=== PATIENT | male | born 1940 | race Asian ===

== ENCOUNTER → 2016-08-28 | Outpatient (CLI) | payer MEDICARE, BC ==
[~2016-08-28] VITALS: Ht 160 cm; Wt 71.0 kg
[~2016-08-28] MED LIST: AMLO1CAP PO; ASPI-556 PO; ATOR80TA PO; BENZ-26 PO; BETA60OI3 TP; CALC560C TP; CALC600T2 PO; CARV25 PO; CETI-260 PO; CLOB60CR4 TP; EZET10 PO; FENO160 PO; FLUT16H NASAL; INSLAN SQ; INSU100I15 SQ; LOSA100T29 PO; PANT40TA25 PO; TAMS0.4C32 PO; TICA90TA PO; USTE45DI SQ; XALA2.5OS; [UNRECOGNIZED DRUG - CODE] TP
[2016-08-28 13:12] VITALS: BP 105/70
== END | disposition home or self-care (01) ==
LOC: SRCNTR 12:10
PROVIDERS: ATTEND Internal Medicine Critical Care Medicine
DX: I10 Essential (primary) hypertension (principal); E11.9 Type 2 diabetes mellitus without complications; J30.9 Allergic rhinitis, unspecified; E78.2 Mixed hyperlipidemia; J06.9 Acute upper respiratory infection, unspecified; K21.9 Gastro-esophageal reflux disease without esophagitis; N40.0 Benign prostatic hyperplasia without lower urinary tract symptoms; I50.9 Heart failure, unspecified; J44.9 Chronic obstructive pulmonary disease, unspecified; L40.9 Psoriasis, unspecified
CPT/HCPCS: G0463

== ENCOUNTER → 2016-08-28 | Outpatient (CLI) | payer MEDICARE, BC | END | disposition home or self-care (01) | LOC: RADPV 13:59 | PROVIDERS: ATTEND Internal Medicine Critical Care Medicine | DX: J44.9 Chronic obstructive pulmonary disease, unspecified (principal); I50.9 Heart failure, unspecified; I70.0 Atherosclerosis of aorta | CPT/HCPCS: 71020 ==

== ENCOUNTER → 2016-10-26 | Outpatient (CLI) | payer MEDICARE, BC ==
[~2016-10-26] VITALS: Ht 157.5 cm; Wt 70.0 kg
[~2016-10-26] MED LIST changes: -CALC600T2 PO; +INSU100V12 SQ
[2016-10-26 11:19] VITALS: BP 101/57
== END | disposition home or self-care (01) ==
LOC: SRCNTR 11:03
PROVIDERS: ATTEND Internal Medicine Critical Care Medicine
DX: E11.9 Type 2 diabetes mellitus without complications (principal); J30.9 Allergic rhinitis, unspecified; J06.9 Acute upper respiratory infection, unspecified; I10 Essential (primary) hypertension; E78.2 Mixed hyperlipidemia; K21.9 Gastro-esophageal reflux disease without esophagitis; N40.0 Benign prostatic hyperplasia without lower urinary tract symptoms
CPT/HCPCS: G0463

== ENCOUNTER → 2017-01-25 | Outpatient (CLI) | payer MEDICARE, BC ==
[~2017-01-25] VITALS: Ht 157.5 cm; Wt 71.0 kg
[2017-01-25 11:05] VITALS: BP 111/74
== END | disposition home or self-care (01) ==
LOC: SRCNTR 10:55
PROVIDERS: ATTEND Internal Medicine Critical Care Medicine
DX: E11.9 Type 2 diabetes mellitus without complications (principal); J30.9 Allergic rhinitis, unspecified; E78.2 Mixed hyperlipidemia; I10 Essential (primary) hypertension; J06.9 Acute upper respiratory infection, unspecified; K21.9 Gastro-esophageal reflux disease without esophagitis; N40.0 Benign prostatic hyperplasia without lower urinary tract symptoms
CPT/HCPCS: G0463

== ENCOUNTER → 2017-07-09 | Outpatient (CLI) | payer MEDICARE, BC ==
[~2017-07-09] VITALS: Ht 157.5 cm; Wt 71.0 kg
[~2017-07-09] MED LIST changes: +AMLO-511 PO; -BENZ-26 PO; +BENZ-39 PO; -CALC560C TP; -CETI-260 PO; +CETI-290 PO; -EZET10 PO; +INFLUENZA VIRUS VACCINE QVS 2017-18 (3YR+)/PF 60 MCG/0.5 ML SYRINGE IM ONE; -INSLAN SQ; -TICA90TA PO; -USTE45DI SQ; -XALA2.5OS
[2017-07-09 12:59] VITALS: BP 99/54
== END | disposition home or self-care (01) ==
LOC: SRCNTR 12:57
PROVIDERS: ATTEND Internal Medicine Critical Care Medicine
DX: J06.9 Acute upper respiratory infection, unspecified (principal); I10 Essential (primary) hypertension; J30.9 Allergic rhinitis, unspecified; E78.2 Mixed hyperlipidemia; E11.69 Type 2 diabetes mellitus with other specified complication; K21.9 Gastro-esophageal reflux disease without esophagitis; N40.0 Benign prostatic hyperplasia without lower urinary tract symptoms
CPT/HCPCS: 90471; G0463